=== PATIENT | female | born 1945 | race Caucasian/White ===

== ENCOUNTER 2022-07-11 01:51 | Day surgery (SDC) | payer MEDICARE, SELFPAY ==
[2022-07-03 10:37] VITALS: BMI 36.2
--- NOTE | 2022-07-03 11:01 | PC.NURSE ---
Report to the Outpatient Waiting Room, entrance under the green pavilion located off [facility], at time ___0600____ on date __07/11/22 . OR Time: 729___. - You and your visitor will be asked a series of questions to screen for COVID 19 for your protection. - Only one visitor is allowed at this time. - The patient visitor is requested to leave or wait in car when not with patient. - A mask is required within the hospital. Patients may have clear liquids (water, carbonated beverages, clear teas, apple juice) until 3 hours prior to surgery (0430 AM) with a maximum of 20 ounces. - No food from midnight until time of surgery - Infants may have breast milk until 4 hours before surgery, infant formula 6 hours prior to surgery. - Children will be allowed to drink immediately following surgery. If applicable, please bring a bottle or sippy cup to assist with drinking. Juice, water, soda, and popsicles are readily available. For infants on formula, please bring formula the day of surgery. Pacifiers are allowed. Take the following medications with a SIP of water the morning of surgery: _LORAZEPAM, PAIN MEDS__ Medications to discontinue per physician __ALL VITAMINS/SUPPLEMENTS 3 DAYS PRIOR TO SURGERY___ Date to take last dose___07/07/22 Please no make-up, nail greek, hairspray, perfume, deodorant, or body powder the day of surgery. No jewelry (including any body piercings) or valuables the day of surgery, leave them at home. Please take a shower or bath the night before, or the morning of, surgery with an antibacterial soap. Wear comfortable, loose fitting clothing. Children are encouraged to wear pajamas. - Jewelry must be removed prior to entering the operating room. Rings and piercings that are not removed may be cut off. - The hospital will not accept responsibility for valuables. - Please leave all valuables, including medications, at home the day of surgery. If you are going home after surgery, a licensed seasonal driver must drive you home. - NO public transportation without another adult. - We recommend that an adult stay with you for 24 hours following discharge. - We also recommend that you do not drive, make important decision, drink alcoholic beverages, or take any drugs that were not prescribed by your health care provider for at least 24 hours after your discharge time. For Pediatric surgeries, we recommend two adults accompany the child home (only one inside the building at this time). Follow any additional instructions given to you from your surgeon. If you or anyone in your household have experienced Covid symptoms in the past week, please notify your surgeon or the nurse liaison at the phone number below for possible testing. Telephone instructions given to ___PT and asked if any additional questions and then verbalized understanding. Patient advised to call surgeon office or pre surgery nurse liaison [phone] if any additional questions.
[2022-07-11] VITALS (7 sets, daily range): BP systolic 90–153; BP diastolic 35–76; PULSE 58–77; RESP 12–14; TEMP 35.9; O2SAT 94–100
--- NOTE | 2022-07-11 06:57 | WPDANESEPPF ---
Anes - Initial Pre Proc Eval Procedure: Operation Date: 07/11/22 07:30 Proposed Procedures p Right Open Carpal Tunnel Release, Right Ulnar Neuroplasty at the Elbow - Dash Rick MD Date/Time: 07/11/22 06:57 Surgeon: Dash Rick MD Pre Op Diagnosis: Rt Carpal Tunnel Syn, Right Cubital Tunnel Syn Patient Data Age: 76 Gender: F Height: 1.6 m Weight: 92.72 kg Allergies Allergy/AdvReac Type Severity Reaction Status Date / Time adhesive tape AdvReac SKIN TEARS Verified 07/03/22 10:46 latex AdvReac SKIN Verified 07/03/22 10:27 IRRITATION Penicillins AdvReac Hives/ITCHI Verified 07/03/22 10:27 NG STERIODS AdvReac Confusion Uncoded 07/03/22 10:46 Home Medications Medication Instructions Recorded Confirmed Type Probiotic 1 cap HS 07/03/22 07/03/22 History ascorbic acid (vitamin C) 1,000 mg 1 g PO HS 07/03/22 07/03/22 History tablet (Vitamin C) baclofen 10 mg tablet 10 mg BID PRN Muscle Pain 07/03/22 07/03/22 History cyanocobalamin (vitamin B-12) 1,000 mcg PO HS 07/03/22 07/03/22 History 1,000 mcg capsule dulaglutide 1.5 mg/0.5 mL 1.5 mg subcut WEEKLY 07/03/22 07/03/22 History subcutaneous pen injector (Trulicity) furosemide 40 mg tablet 40 mg QAM 07/03/22 07/03/22 History insulin glargine 100 unit/mL (3 18 unit subcut HS 07/03/22 07/03/22 History mL) subcutaneous pen (Lantus Solostar U-100 Insulin) linagliptin 5 mg tablet (Tradjenta) 5 mg DAILY 07/03/22 07/03/22 History lorazepam 0.5 mg tablet 0.5 mg BID 07/03/22 07/03/22 History meclizine 12.5 mg tablet 12.5 mg PO BID 07/03/22 07/03/22 History multivitamin with minerals 1 tablet PO HS 07/03/22 07/03/22 History (Hair,Skin and Nails tablet) pregabalin 100 mg capsule 100 mg BID 07/03/22 07/03/22 History primidone 50 mg tablet 50 mg BID 07/03/22 07/03/22 History pumpkin seed extract-soy germ 300 1 cap PO BID 07/03/22 07/03/22 History mg capsule (Azo Bladder Control) rosuvastatin 10 mg tablet 10 mg HS 07/03/22 07/03/22 History trazodone 50 mg tablet 50 mg HS 07/03/22 07/03/22 History vilazodone 40 mg tablet (Viibryd) 40 mg QAM 07/03/22 07/03/22 History Patient hx anesthesia problems: none Family hx anesthesia problems: post op nausea/vomiting Results Review: All pre-operative results and documents have been reviewed as part of the pre-operative evaluation. FOR[facility]LY [facility] Past Medical History Medical History Anxiety Chronic pain syndrome Diabetes Hyperlipidemia Hypertension MAULIK (obstructive sleep apnea) Social History Social History Smoking status: Former smoker Tobacco type: cigarettes Second hand tobacco smoke exposure: No Additional smoking assessment comments: STATES SMOKED SOCIAL IN HIGH SCHOOL Alcohol intake: never Substance use: never Substance use type: does not use Living arrangements: with family Spiritual care concerns: No Anes - Eval Final PreProcedure Day of Procedure 07/11/22 06:57 Patient weight: obese Heart: regular rate and rhythm Lungs: clear to auscultation Airway: Mallampati scale class II Neurological: other (alert) Last oral intake: >/= 8 hours ASA classification: III Emergent: no Anesthetic plan: proceed Anesthesia type and monitoring: general LMA and standard monitoring Results Review: All pre-operative results and documents have been reviewed as part of the pre-operative evaluation. Informed Consent: The patient's anesthetic plan and its attendant risks and benefits were discussed with the patient/family/POA. Questions were solicited and answers provided to the satisfaction of the patient/family/POA.
--- NOTE | 2022-07-11 07:03 | WPDHPUPDATE1 ---
History and Physical Update Update Date/Time: 07/11/22 07:03 History and Physical has been reviewed, including an updated exam of the patient. There are NO changes in the patient's condition. Risks, benefits, and alternatives have been discussed and questions answered. Patient agrees to proceed with procedure.
[2022-07-11] MEDS: LACTATED RINGERS 1,000 ML 30 ML IV CONT (07:15)
[2022-07-11 07:19] LABS: Glucose Point of Care 135 mg/dl (65-105)
[2022-07-11] MEDS: ceFAZolin 2 GM/D5W 50 ML 2 GM/50 ML BAG IVPB (07:25)
[2022-07-11] MEDS: LIDO 1%/EPINEPHRINE 1:100,000 50 ML VIAL 10 ML INFILTRATE (07:58)
[2022-07-11 08:29] LABS: Glucose Point of Care 137 mg/dl (65-105)
--- NOTE | 2022-07-11 08:42 | P.OP_ITS ---
Procedure Note - Detailed Date of Procedure 07/11/22 Pre-op Diagnosis Rt Carpal Tunnel Syn, Right Cubital Tunnel Syn Post-op Diagnosis Same Procedure Performed Right open carpal tunnel release and right ulnar neuroplasty at the elbow Surgeon Dash Rick MD [employer] Operator Stephanie Gonzalez Anesthesia MAC Description of Procedure Skin markings were placed over the right carpal tunnel and cubital tunnel with the patient's consent in the holding area. She was rolled to the operating room where she was placed supine on the operating table. She was given IV sedation and the right upper extremity was prepped and draped in usual fashion. A time- out was held and confirmed. The 2 sites were marked for surgical incision and locally infiltrated with 1% lidocaine with epinephrine. The extremity was exsanguinated and the tourniquet inflated to 250 mmHg. Surgery was begun at the hand with the incision as marked. Blunt dissection through the subcutaneous tissue revealed the palmar aponeurosis. This and the transverse carpal retinaculum were incised with a 15 blade opening the canal. The ligament was divided distally and proximally to completely release it. No unusual anatomy was noted. The skin wound was then closed with interrupted 5 0 nylon suture. Attention was turned to the elbow which was flexed and supported on folded towels. The incision was made as marked and dissection was carried with sharp and blunt dissection to the ulnar nerve which was the easily visualized between the medial epicondyle and the olecranon. There was minimal muscle and this area. The fascia was incised and the nerve exposed. Proximally the muscular septum was divided where it lay against the nerve. This allowed passive digit alongside the nerve. Dissecting distally we intend Hand's ligament which was divided. Beyond that there was little compression from the flexor muscle fascia. The nerve did not sublux and was not transposed. The tourniquet was released and bleeding points were electrocoagulated. The wound was then closed with intradermal 3-0 Monocryl sutures at several sites. The skin was closed with glue. The usual bandages were applied to both sites. She was discharged from the operating room stable condition. Drains No Packing No Pathology None sent Complications No immediate complications Condition Stable Disposition Same day
[2022-07-11] MEDS: oxyCODONE HCL (*CRX) 5 MG TAB IR PO (10:18)
--- NOTE | 2022-07-11 10:24 | SUR.PHASEII ---
Patient has a long drive home so RN gave a pain pill before discharge home.
== END 2022-07-11 10:26 | disposition home or self-care (01) ==
PROVIDERS: PCP Family Medicine; Visit Provider Plastic Surgery
PROC: (CPT 64721; principal; 2022-07-11 07:30)
DX: G56.01 Carpal tunnel syndrome, right upper limb (principal); G56.21 Lesion of ulnar nerve, right upper limb; E11.9 Type 2 diabetes mellitus without complications; E78.5 Hyperlipidemia, unspecified; I10 Essential (primary) hypertension; G47.33 Obstructive sleep apnea (adult) (pediatric); G89.4 Chronic pain syndrome; F41.9 Anxiety disorder, unspecified; Z87.891 Personal history of nicotine dependence; E66.9 Obesity, unspecified; Z68.33 Body mass index [BMI] 33.0-33.9, adult; Z79.899 Other long term (current) drug therapy; Z79.4 Long term (current) use of insulin; Z79.84 Long term (current) use of oral hypoglycemic drugs
CPT/HCPCS: 64721; 64718; 82948; A9270; J0690; J2250; J2405; J2704; J3010; J7120